=== PATIENT | male | born 1970 | race Caucasian/White ===

== ENCOUNTER 2020-02-18 08:06 | Outpatient (CLI) | payer OTHER, SELFPAY ==
--- NOTE | ~2020-02-18 | XR_ITS ---
XR chest 2V 02/18/2020 08:31 Indication: Left upper lobe cancer, cough and shortness of breath Procedure: 2 view chest Comparison: 07/06/2017 Findings: There is lucency overlying the aortic knob which may relate to underlying emphysema or post surgical change. There is blunting left lateral costophrenic recess. There is left basilar atelectasi s/scarring. The lungs are hyperinflated which is consistent with, but not diagnostic of chronic obstr uctive pulmonary disease. There is right upper lobe scarring. Impression: 1: Lucency overlying the aortic knob which may relate to emphysema or postsurgical change. Pneumomedi astinum is less favored. 2: Blunting left lateral costophrenic recess which may relate to pleural thickening or small effusion . Reviewed, dictated and finalized at location A. Impression: 1: Lucency overlying the aortic knob which may relate to emphysema or postsurgi faye change. Pneumomediastinum is less favored. 2: Blunting left lateral costophrenic recess which may relate to pleural thicke kendra or small effusion.
== END 2020-02-18 08:07 | disposition home or self-care (01) ==
PROVIDERS: PCP Family Medicine
DX: C34.12 Malignant neoplasm of upper lobe, left bronchus or lung (principal); R91.8 Other nonspecific abnormal finding of lung field
CPT/HCPCS: 71046

== ENCOUNTER 2020-03-01 08:46 | Outpatient (CLI) | payer OTHER, SELFPAY ==
--- NOTE | ~2020-03-01 | CT_ITS ---
EXAMINATION:CT chest w con DATE: 03/01/2020 09:23 INDICATION: Cancer of upper lobe of left lung. TECHNIQUE: Computed tomography (CT) of the chest was performed without intravenous contrast. Automate d exposure control and iterative reconstruction technique were employed. The dose-length product (DLP ) was 177.68 mGy-cm. COMPARISON: Chest CT 06/21/2017, 09/08/2015 FINDINGS: There are changes of left upper lobectomy. There is severe emphysema. There is an 8 mm nodu le in right upper lobe, stable from 09/08/2015, consistent with granulomatous disease. A calcified ri ght lung nodule is consistent with old granulomatous disease. No pleural effusion. The heart size is normal. There are coronary artery calcifications. No pericardial effusion. There is a 14 x 11 mm node in the aorticopulmonary window. There is a 12 mm cyst in the liver. There is mild thoracic spondylos is. IMPRESSION: 1. Mildly enlarged mediastinal lymph node, new from 06/21/2017, which is indeterminate for metastatic disease. Reviewed, dictated and finalized at location A. IMPRESSION: 1. Mildly enlarged mediastinal lymph node, new from 06/21/2017, which is indeter minate for metastatic disease.
[2020-03-01 11:09] LABS: Estimated Glomerular Filt Rate > 60
== END 2020-03-01 08:47 | disposition home or self-care (01) ==
PROVIDERS: PCP Family Medicine; Visit Provider Family Medicine
DX: C34.12 Malignant neoplasm of upper lobe, left bronchus or lung (principal); R59.0 Localized enlarged lymph nodes
CPT/HCPCS: 36415; 71260; Q9967

== ENCOUNTER 2020-03-26 12:20 | Outpatient (CLI) | payer OTHER, SELFPAY ==
--- NOTE | 2020-03-31 20:42 | P.PCNPFT_ITS ---
PFT Interpretation PFT Interpretation: DOS: 03/26/2020 REQUESTING: Dr. Jan Mccallum REASON FOR TESTING: enlarged lymph node PULMONARY FUNCTION TESTS Results are reproducible and reliable. Patient's medications include ProAir, Spiriva, and Symbicort. Spirometry: FEV1 70%, mildly decreased. FVC 96% normal. FEV 1% 53% signif icantly reduced consistent with airflow obstruction. FEF 25-75% is 29%. No significant change after bronchodilator. Lung volumes: TLC 110% normal. RV 123% mildly elevated consistent with air tra pping. Airway resistance increased 219%. Diffusion: DLCO 74%, mildly decreased. Flow volume loop: Scooping of the expiratory limb. IMPRESSION: Mild obstructive ventilatory defect which is severe in the small airways without response to bronchodilator, mild air trapping, mild diffusion impairment. Lack of response to bronchodilators should not preclude use if clinically indicated. This pattern is consistent with COPD. Carmina Thomas MD
== END 2020-03-26 12:21 | disposition home or self-care (01) ==
PROVIDERS: PCP Family Medicine; Visit Provider Family Medicine
DX: R59.9 Enlarged lymph nodes, unspecified (principal); R94.2 Abnormal results of pulmonary function studies
CPT/HCPCS: 94060; 94726; 94729

== ENCOUNTER 2020-05-28 12:40 | Outpatient (CLI) | payer OTHER, SELFPAY ==
--- NOTE | ~2020-05-28 | CT_ITS ---
EXAMINATION: CT abdomen w con DATE: 05/28/2020 13:09 INDICATION: Enlarged chest lymph node (14 x 11 mm aortopulmonary window lymph node) TECHNIQUE: Computed tomography (CT) of the abdomen was performed with 100 cc Omnipaque 350 intravenou s contrast. Automated exposure control and iterative reconstruction technique were employed. Exam dos e: 132.30 mGy-cm total exam DLP. COMPARISON: 07/20/[address] scan FINDINGS: Emphysematous is changes are evident in the lower lung zones. There is discoid atelectasis or scarring at both lung bases. Heart size is within normal limits. No pericardial or pleural effusio n. 11 mm left hepatic cyst. The liver is otherwise unremarkable. Approximate 4.5 mm stone in the dependent aspect of the gallbladder. No gallbladder wall thickening o r pericholecystic fluid or inflammation. No bile duct or pancreatic duct dilatation. No pancreatic ma ss lesion or calcification. Normal splenic size. Normal morphology of the adrenal glands. There are several cysts measuring up to 1.4 cm maximal dimension. No urinary tract calculus or hydron ephrosis. There is extensive calcification of the abdominal aorta but no aneurysm. There are prominent bilatera l renal artery calcifications as well as common iliac artery calcifications. No intraperitoneal or retroperitoneal mass lesion or adenopathy or ascites is detected. No suspicious osteolytic or osteoblastic lesions are noted. IMPRESSION: Emphysema 4.5 mm gallstone 11 mm hepatic cyst Left renal cysts Reviewed, dictated and finalized at Location A. Reviewed, dictated and finalized at location A.
[2020-05-28 13:04] LABS: Estimated Glomerular Filt Rate > 60
== END 2020-05-28 12:41 | disposition home or self-care (01) ==
PROVIDERS: PCP Family Medicine; Visit Provider Family Medicine
DX: R59.0 Localized enlarged lymph nodes (principal); J43.9 Emphysema, unspecified; K80.20 Calculus of gallbladder without cholecystitis without obstruction; K76.89 Other specified diseases of liver; N28.1 Cyst of kidney, acquired
CPT/HCPCS: 74160; Q9967

== ENCOUNTER 2021-03-03 09:08 | Outpatient (CLI) | payer OTHER, SELFPAY ==
[2021-03-07 14:52] LABS: Testosterone Total 611 ng/dL (250-1100)
== END 2021-03-03 09:09 | disposition home or self-care (01) ==
PROVIDERS: PCP Family Medicine; Visit Provider Nurse Practitioner
DX: N52.9 Male erectile dysfunction, unspecified (principal)
CPT/HCPCS: 36415; 84402; 84403

== ENCOUNTER 2021-03-17 09:39 | Outpatient (CLI) | payer OTHER, SELFPAY ==
--- NOTE | 2021-03-17 | EST_ITS ---
Patient Info Name: Douglas Momin Age: 50 years : 1970 Gender: Male Ht: 71 in Wt: 145 lbs BSA: 1.81 m2 HR: 84 bpm BP: 122 / 73 mmHg Heart Rhythm: Sinus Rhythm Exam Date: 03/17/2021 10:51 AM Exam Location: [facility] Stress Patient Status: Outpatient Admit Date: 03/17/2021 Staff Ordering Physician: Josh, Leslee Rodriguez NP Attending Provider: JoshLeslee NP Exercise Technologist: Allie Bryant CT Exercise Physician: Mak Wilson MD Exam Type: CA stress test treadmill Study Info An exercise stress test was performed. Summary 1. Normal sinus rhythm - normal ECG. 2. No abnormal ST/T wave changes with exercise. 3. Frequent PVCs. 4. Electrocardiographically negative stress test at 85% age predicted maximum heart rate. 5. Chest pain described by the patient during treadmill exercise but again no ischemic ECG changes. Protocol: [facility] Stress ECG Details Stage: REST Duration (min): 0 min : 53 sec Speed (mph): 0.0 Grade (%): 0 HR (bpm): 82 SBP (mmHg): 122 DBP (mmHg): 73 METS: --- Stage: REST Duration (min): 8 min : 20 sec Speed (mph): 0.0 Grade (%): 0 HR (bpm): 89 SBP (mmHg): 122 DBP (mmHg): 73 METS: --- Stage: STAGE 1 Duration (min): 1 min : 0 sec Speed (mph): 1.7 Grade (%): 10 HR (bpm): 110 SBP (mmHg): 122 DBP (mmHg): 73 METS: --- Stage: STAGE 1 Duration (min): 2 min : 0 sec Speed (mph): 1.7 Grade (%): 10 HR (bpm): 126 SBP (mmHg): 122 DBP (mmHg): 73 METS: --- Stage: STAGE 1 Duration (min): 3 min : 0 sec Speed (mph): 1.7 Grade (%): 10 HR (bpm): 122 SBP (mmHg): 205 DBP (mmHg): 93 METS: --- Stage: STAGE 2 Duration (min): 1 min : 0 sec Speed (mph): 2.5 Grade (%): 12 HR (bpm): 124 SBP (mmHg): 205 DBP (mmHg): 93 METS: --- Stage: STAGE 2 Duration (min): 2 min : 0 sec Speed (mph): 2.5 Grade (%): 12 HR (bpm): 138 SBP (mmHg): 213 DBP (mmHg): 91 METS: --- Stage: STAGE 2 Duration (min): 2 min : 59 sec Speed (mph): 3.4 Grade (%): 14 HR (bpm): 145 SBP (mmHg): 213 DBP (mmHg): 91 METS: --- Stage: RECOVERY Duration (min): 1 min : 0 sec Speed (mph): 0.0 Grade (%): 0 HR (bpm): 134 SBP (mmHg): 203 DBP (mmHg): 87 METS: --- Stage: RECOVERY Duration (min): 2 min : 0 sec Speed (mph): 0.0 Grade (%): 0 HR (bpm): 121 SBP (mmHg): 203 DBP (mmHg): 87 METS: --- Stage: RECOVERY Duration (min): 3 min : 0 sec Speed (mph): 0.0 Grade (%): 0 HR (bpm): 111 SBP (mmHg): 187 DBP (mmHg): 90 METS: --- Stage: RECOVERY Duration (min): 3 min : 29 sec Speed (mph): 0.0 Grade (%): 0 HR (bpm): 106 SBP (mmHg): 187 DBP (mmHg): 90 METS: --- Rest HR: 89 bpm Peak HR: 149 bpm Rest Sys BP: 122 mmHg Peak Sys BP: 213 mmHg Max Pr
== END 2021-03-17 09:40 | disposition home or self-care (01) ==
PROVIDERS: PCP Family Medicine; Visit Provider Nurse Practitioner
DX: R07.9 Chest pain, unspecified (principal)
CPT/HCPCS: 93017

== ENCOUNTER → 2021-05-15 01:10 | Outpatient (CLI) | payer OTHER, SELFPAY ==
[2021-05-15 22:45] LABS: SARS-CoV-2 RNA PCR Negative
== END ==
PROVIDERS: PCP Family Medicine; Visit Provider Family Medicine
DX: R73.9 Hyperglycemia, unspecified (principal); Z20.822 Contact with and (suspected) exposure to COVID-19
CPT/HCPCS: C9803; U0003; U0005

== ENCOUNTER 2021-05-17 09:21 | Outpatient (CLI) | payer OTHER, SELFPAY ==
--- NOTE | 2021-05-17 10:12 | ECHO_ITS ---
Patient Info Name: Douglas Momin Age: 50 years : 1970 Gender: Male Ht: 71 in Wt: 145 lbs BSA: 1.81 m2 HR: 78 bpm BP: 122 / 82 mmHg Technical Quality: Good Exam Date: 05/17/2021 10:23 AM Exam Location: [facility] Patient Status: Outpatient Admit Date: 05/17/2021 Staff Ordering Physician: Butch Gore DO Stock Drier Tender: Bev Pollack RDCS Attending Provider: Butch Gore DO Referring Physician: Bao CALDERON; Exam Type: CA echo dop color flow w con Study Info Indications - dyspnea R07.9 - Chest pain, unspecified R06.00 - Dyspnea, unspecified Complete two-dimensional, color flow and Doppler transthoracic echocardiogram is performed. Summary 1. Complete two-dimensional, color flow and Doppler transthoracic echocardiogram is performed. 2. Left ventricular chamber dimension is normal. 3. Left ventricular systolic function is normal, estimated at 60-65%. 4. The left ventricular diastolic function is grade I diastolic dysfunction. 5. E/e' 5 is not elevated. 6. Global longitudinal strain is normal at -17.5%. 7. There is trace tricuspid valve regurgitation. 8. No pulmonary hypertension, estimated pulmonary arterial systolic pressure is 35 mmHg. 9. There is trace pulmonic regurgitation. Left Ventricle E/e' 5 is not elevated. Global longitudinal strain is normal at -17.5%. Left ventricular chamber dimension is normal. Left ventricular systolic function is normal, estimated at 60-65%. The left ventricular diastolic function is grade I diastolic dysfunction. Right Ventricle Right ventricular chamber dimension is normal. Right ventricular systolic function is normal. Left Atria Left atrial chamber dimension is normal. Right Atria Right atrial chamber dimension is normal. Aortic Valve The aortic valve is trileaflet. There is no aortic valve stenosis. There is no aortic valve regurgitation. Pulmonic Valve There is trace pulmonic regurgitation. Mitral Valve There is no mitral valve stenosis. There is no mitral valve regurgitation. Tricuspid Valve There is trace tricuspid valve regurgitation. No pulmonary hypertension, estimated pulmonary arterial systolic pressure is 35 mmHg. Pericardium/Pleural There is no pericardial effusion. Inferior Vena Cava Normal inferior vena cava with >50% collapse upon inspiration consistent with normal right atrial pressure, 5 mmHg. Aorta The aortic root size at the sinus of Valsalva is normal. Left Ventricular Outflow Tract Name Value Normal LVOT 2D LVOT Diameter 2.08 cm LVOT Doppler LVOT Peak Gradient 5 mmHg LVOT Mean Gradient 2 mmHg LVOT VTI 20.02 cm LVOT VTI/AV VTI Ratio 0.82 LVOT Stroke Volume 68.01 ml LVOT CO 15.05 l/min LVOT CI 8.33 L/min/m2 Pulmonic Valve Name Value Normal
== END 2021-05-17 09:22 | disposition home or self-care (01) ==
PROVIDERS: PCP Family Medicine; Visit Provider Internal Medicine Cardiovascular Disease
DX: R06.00 Dyspnea, unspecified (principal)
CPT/HCPCS: C8929

== ENCOUNTER 2021-05-26 06:40 | Outpatient (CLI) | payer OTHER, SELFPAY ==
[2021-05-26 08:28] LABS: Alanine Aminotransferase 16 U/L (4-50); Albumin Level 4.7 g/dL (3.5-5.1); Alkaline Phosphatase 85 U/L (38-126); Anion Gap 7 mmol/L (8-16); Aspartate Amino Transferase 26 U/L (17-59); Bilirubin,Total 0.4 mg/dL (0.2-1.3); Blood Urea Nitrogen 11 mg/dL (9-20); Calcium 9.6 mg/dL (8.4-10.2); Carbon Dioxide 27 mmol/L (22-30); Chloride 102 mmol/L (98-107); Cholesterol 163 mg/dL (0-200); Estimated Glomerular Filt Rate > 60; Glucose 105 mg/dL (65-110); HDL Direct 47 mg/dL; Potassium 3.9 mmol/L (3.4-5.0); Sodium 136 mmol/L (137-145); Triglycerides 124 mg/dL (<150)
[2021-05-26 08:40] LABS: LDL Cholesterol Direct 76 mg/dL
== END 2021-05-26 06:41 | disposition home or self-care (01) ==
LOC: ANHLAB 06:42
PROVIDERS: PCP Family Medicine; Visit Provider Internal Medicine Cardiovascular Disease
DX: E78.5 Hyperlipidemia, unspecified (principal)
CPT/HCPCS: 36415; 80053; 80061

== ENCOUNTER 2021-07-21 14:01 | Outpatient (CLI) | payer OTHER, SELFPAY ==
--- NOTE | ~2021-07-21 | CT_ITS ---
EXAMINATION: CT diagnostic chest w con DATE: 07/21/2021 14:33 INDICATION: Bleeding from sternotomy, recent surgery, chest pain, shortness of breath TECHNIQUE: Transaxial computed tomographic images of the chest were obtained after the administration of 75 cc of Omnipaque 350 intravenous contrast. The dose-length product (DLP) was 174.79 mGy-cm. Ite rative reconstruction was used. COMPARISON: 03/01/2020 FINDINGS: There is severe emphysema. Changes of left upper lobectomy are again noted. A stable 8 mm n odule is present in the right upper lobe. There is no pleural effusion or pneumothorax. There is mild atelectasis of the lower lobes, right greater than left. No pleural effusion or pneumothorax is iden tified. There are changes of interval cardiac surgery. There is a 6.2 x 2.8 x 4.7 cm hyperattenuating fluid collection in the anterior mediastinum. There are also foci of gas in the anterior mediastinum and left anterior chest wall. No definite active contrast extravasation is identified. Streak artifa ct is seen anterior to the aortic arch. Cardiomegaly is noted. No pathologically enlarged thoracic ly mph nodes are identified. IMPRESSION: 1. Hematoma containing gas of the upper mediastinum, likely related to recent surgery. Although no ac tive contrast extravasation is identified, slow leak is not excluded. Given the amount of persistent gas, risk of developing abscess should be considered. Surgical consultation is recommended. 2. Severe emphysema. Reviewed, dictated and finalized at location B. IMPRESSION: 1. Hematoma containing gas of the upper mediastinum, likely related to recent s urgery. Although no active contrast extravasation is identified, slow leak is n ot excluded. Given the amount of persistent gas, risk of developing abscess enrique uld be considered. Surgical consultation is recommended. 2. Severe emphysema.
[2021-07-21 14:26] LABS: Estimated Glomerular Filt Rate > 60
== END 2021-07-21 14:02 | disposition home or self-care (01) ==
PROVIDERS: PCP Family Medicine
DX: T14.8XXA Other injury of unspecified body region, initial encounter (principal); J43.9 Emphysema, unspecified
CPT/HCPCS: 71260; Q9967

== ENCOUNTER 2021-08-10 09:03 | Outpatient (CLI) | payer OTHER, SELFPAY ==
[2021-08-10 09:31] LABS: Basophils Absolute Auto 0.1 K/mm3 (0.0-0.1); Basophils Percent Auto 0.8 % (0.2-1.2); Eosinophils Absolute Auto 0.4 K/mm3 (0-0.3); Eosinophils Percent Auto 4.1 % (0-4.4); Hematocrit 37.3 % (42.0-52.0); Hemoglobin 13.2 g/dL (14.0-18.0); Immature Granulocyte Absolute 0.03 K/mm3 (0.00-0.031); Immature Granulocyte Percent A 0.3 % (0-0.5); Lymphocytes Absolute Auto 2.41 K/mm3 (0.9-3.2); Lymphocytes Percent Auto 22.7 % (18.3-44.2); Mean Corpuscular HGB Conc 35.4 g/dl (32-36); Mean Corpuscular Hemoglobin 32.4 pg (26-34); Mean Corpuscular Volume 91.6 fl (80-100); Mean Platelet Volume 8.9 fl (7.4-10.4); Monocytes Absolute Auto 0.7 K/mm3 (0.1-0.6); Monocytes Percent Auto 6.6 % (2.6-8.5); Neutrophils Percent Auto 65.5 % (45.5-73.1); Platelet Count Result 269 k/mm3 (150-375); Red Blood Count 4.07 M/mm3 (4.6-6.20); Red Cell Distribution Width 13.2 % (11.5-14.5); White Blood Count 10.6 K/mm3 (4.5-10.0)
[2021-08-10 11:39] LABS: Alanine Aminotransferase 17 U/L (4-50); Albumin Level 4.7 g/dL (3.5-5.1); Alkaline Phosphatase 71 U/L (38-126); Anion Gap 8 mmol/L (8-16); Aspartate Amino Transferase 24 U/L (17-59); Bilirubin,Total 0.4 mg/dL (0.2-1.3); Blood Urea Nitrogen 13 mg/dL (9-20); Calcium 9.7 mg/dL (8.4-10.2); Carbon Dioxide 27 mmol/L (22-30); Chloride 98 mmol/L (98-107); Cholesterol 171 mg/dL (0-200); Estimated Glomerular Filt Rate > 60; Glucose 98 mg/dL (65-110); HDL Direct 49 mg/dL; Potassium 4.2 mmol/L (3.4-5.0); Sodium 133 mmol/L (137-145); Triglycerides 136 mg/dL (<150)
[2021-08-10 11:49] LABS: LDL Cholesterol Direct 84 mg/dL
[2021-08-10 12:08] LABS: Free T4 Free Thyroxine 1.08 ng/mL (0.78-2.19); Vitamin D 25 Hydroxy 50.6 ng/mL
[2021-08-10 12:10] LABS: Thyroid Stimulating Hormone 0.922 uIU/mL (0.465-4.680); Total Triiodothyronine (T3) 1.55 NG/ML (0.97-1.69)
== END 2021-08-10 09:04 | disposition home or self-care (01) ==
LOC: ANHLAB 09:06
PROVIDERS: PCP Family Medicine; Visit Provider Family Medicine
DX: Z13.1 Encounter for screening for diabetes mellitus (principal); Z13.0 Encounter for screening for diseases of the blood and blood-forming organs and certain disorders involving the immune mechanism; Z13.6 Encounter for screening for cardiovascular disorders; Z13.220 Encounter for screening for lipoid disorders; Z13.29 Encounter for screening for other suspected endocrine disorder; R80.9 Proteinuria, unspecified; Z00.00 Encounter for general adult medical examination without abnormal findings; I10 Essential (primary) hypertension
CPT/HCPCS: 36415; 80053; 80061; 82306; 84439; 84443; 84480; 85025

== ENCOUNTER 2022-12-27 08:52 | Outpatient (CLI) | payer OTHER, SELFPAY ==
[2022-12-27 09:29] LABS: Basophils Percent Auto 0.2 % (0.2-1.2); Eosinophils Absolute Auto 0.1 K/mm3 (0-0.3); Eosinophils Percent Auto 0.3 % (0-4.4); Hematocrit 43.1 % (42.0-52.0); Hemoglobin 15.3 g/dL (14.0-18.0); Immature Granulocyte Absolute 0.11 K/mm3 (0.00-0.031); Immature Granulocyte Percent A 0.6 % (0-0.5); Lymphocytes Absolute Auto 3.11 K/mm3 (0.9-3.2); Lymphocytes Percent Auto 15.7 % (18.3-44.2); Mean Corpuscular HGB Conc 35.5 g/dl (32-36); Mean Corpuscular Hemoglobin 32.9 pg (26-34); Mean Corpuscular Volume 92.7 fl (80-100); Mean Platelet Volume 9.4 fl (7.4-10.4); Monocytes Absolute Auto 1.1 K/mm3 (0.1-0.6); Monocytes Percent Auto 5.4 % (2.6-8.5); Neutrophils Absolute Auto 15.4 K/mm3 (1.3-6.7); Neutrophils Percent Auto 77.8 % (45.5-73.1); Platelet Count Result 220 k/mm3 (150-375); Red Blood Count 4.65 M/mm3 (4.6-6.20); Red Cell Distribution Width 13.5 % (11.5-14.5); White Blood Count 19.8 K/mm3 (4.5-10.0)
[2022-12-27 09:41] LABS: Alanine Aminotransferase 16 U/L (6-50); Albumin Level 4.6 g/dL (3.5-5.1); Alkaline Phosphatase 77 U/L (38-126); Anion Gap 6 mmol/L (8-16); Aspartate Amino Transferase 22 U/L (17-59); Bilirubin,Total 0.4 mg/dL (0.2-1.3); Blood Urea Nitrogen 14 mg/dL (9-20); Calcium 9.1 mg/dL (8.4-10.2); Carbon Dioxide 25 mmol/L (22-30); Chloride 102 mmol/L (98-107); Cholesterol 162 mg/dL (0-200); Estimated Glomerular Filt Rate > 60; Glucose 92 mg/dL (65-110); HDL Direct 43 mg/dL; Potassium 3.7 mmol/L (3.4-5.0); Sodium 133 mmol/L (137-145); Triglycerides 124 mg/dL (<150)
[2022-12-27 09:52] LABS: LDL Cholesterol Direct 94 mg/dL
[2022-12-27 10:12] LABS: Prostate Specific Antigen 0.2 ng/mL (< OR = 4.0); Thyroid Stimulating Hormone 0.137 uIU/mL (0.465-4.680); Total Triiodothyronine (T3) 1.08 NG/ML (0.97-1.69)
[2022-12-27 10:15] LABS: Creatinine Urine 134.4 mg/dL
[2022-12-27 10:20] LABS: MALB Creatinine Ratio 19.1 mg/g (0-30); Microalbumin Urine Random 25.7 mg/L (0-16.7)
[2022-12-27 10:49] LABS: Free T4 Free Thyroxine 1.35 ng/mL (0.78-2.19); Vitamin D 25 Hydroxy 58.8 ng/mL
== END 2022-12-27 08:53 | disposition home or self-care (01) ==
PROVIDERS: Nurse Practitioner Adult Health; PCP Family Medicine; Visit Provider Family Medicine
DX: I10 Essential (primary) hypertension (principal); E78.5 Hyperlipidemia, unspecified; J44.9 Chronic obstructive pulmonary disease, unspecified; C34.90 Malignant neoplasm of unspecified part of unspecified bronchus or lung; R53.1 Weakness; R53.83 Other fatigue; Z12.5 Encounter for screening for malignant neoplasm of prostate
CPT/HCPCS: 36415; 80053; 80061; 82043; 82306; 84153; 84439; 84443; 84480; 85025; G0103

== ENCOUNTER 2023-01-30 09:45 | Outpatient (CLI) | payer OTHER, SELFPAY ==
--- NOTE | 2023-01-30 13:24 | WPDPFTINT ---
PFT Procedure Performed PFT Procedure Performed Spirometry w/o Bronchodil PFT Interpretation Spirometry showed diminished expiratory flow rates and a diminished FEV1/FVC ratio of 48%, consistent with obstructive airway disease. No post bronchodilator study carried out. The flow-volume loop is consistent with obstructive airway disease. In comparison to previous study in March of 2020, the pre-bronchodilator FEV1 and FVC are each lower by approximately 0.3 L. Impression: Moderate obstructive airway disease.
== END 2023-01-30 09:46 | disposition home or self-care (01) ==
LOC: ANHPFT 09:46
PROVIDERS: PCP Family Medicine; Visit Provider Family Medicine
DX: R06.00 Dyspnea, unspecified (principal); J44.9 Chronic obstructive pulmonary disease, unspecified
CPT/HCPCS: 94375

== ENCOUNTER 2023-11-09 10:08 | Outpatient (CLI) | payer MEDICARE, SELFPAY ==
[2023-11-09 11:04] LABS: Basophils Absolute Auto 0.1 K/mm3 (0.0-0.1); Eosinophils Absolute Auto 0.2 K/mm3 (0-0.3); Eosinophils Percent Auto 2.1 % (0-4.4); Hemoglobin 15.5 g/dL (14.0-18.0); Immature Granulocyte Absolute 0.03 K/mm3 (0.00-0.031); Immature Granulocyte Percent A 0.4 % (0-0.5); Lymphocytes Absolute Auto 2.72 K/mm3 (0.9-3.2); Lymphocytes Percent Auto 33.3 % (18.3-44.2); Mean Corpuscular HGB Conc 33.7 g/dl (32-36); Mean Corpuscular Hemoglobin 31.6 pg (26-34); Mean Corpuscular Volume 93.9 fl (80-100); Mean Platelet Volume 9.6 fl (7.4-10.4); Monocytes Absolute Auto 0.5 K/mm3 (0.1-0.6); Monocytes Percent Auto 6.4 % (2.6-8.5); Neutrophils Absolute Auto 4.7 K/mm3 (1.3-6.7); Neutrophils Percent Auto 56.8 % (45.5-73.1); Platelet Count Result 244 k/mm3 (150-375); Red Cell Distribution Width 13.2 % (11.5-14.5); White Blood Count 8.2 K/mm3 (4.5-10.0)
[2023-11-09 11:08] LABS: Alanine Aminotransferase 15 U/L (6-50); Albumin Level 4.7 g/dL (3.5-5.1); Alkaline Phosphatase 79 U/L (38-126); Anion Gap 8 mmol/L (8-16); Aspartate Amino Transferase 26 U/L (17-59); Bilirubin,Total 0.4 mg/dL (0.2-1.3); Blood Urea Nitrogen 15 mg/dL (9-20); Calcium 9.2 mg/dL (8.4-10.2); Carbon Dioxide 24 mmol/L (22-30); Chloride 105 mmol/L (98-107); Cholesterol 179 mg/dL (0-200); Estimated Glomerular Filt Rate > 60; Glucose 99 mg/dL (65-110); HDL Direct 52 mg/dL; Potassium 4.3 mmol/L (3.4-5.0); Sodium 137 mmol/L (137-145); Triglycerides 61 mg/dL (<150)
[2023-11-09 11:18] LABS: LDL Cholesterol Direct 105 mg/dL
[2023-11-09 11:24] LABS: Free T4 Free Thyroxine 1.19 ng/mL (0.78-2.19); Vitamin D 25 Hydroxy 44.8 ng/mL
[2023-11-09 11:38] LABS: Prostate Specific Antigen 0.3 ng/mL (< OR = 4.0); Total Triiodothyronine (T3) 1.21 NG/ML (0.97-1.69)
[2023-11-09 11:39] LABS: MALB Creatinine Ratio 13.1 mg/g (0-30)
== END 2023-11-09 10:09 | disposition home or self-care (01) ==
LOC: ANHLAB 10:14
PROVIDERS: PCP Family Medicine; Visit Provider Family Medicine
DX: J44.9 Chronic obstructive pulmonary disease, unspecified (principal); I10 Essential (primary) hypertension; M62.81 Muscle weakness (generalized); E55.9 Vitamin D deficiency, unspecified; E03.9 Hypothyroidism, unspecified; E78.5 Hyperlipidemia, unspecified; D64.9 Anemia, unspecified; Z12.5 Encounter for screening for malignant neoplasm of prostate
CPT/HCPCS: 36415; 80053; 80061; 82043; 82306; 84153; 84439; 84443; 84480; 85025; G0103

== ENCOUNTER 2025-03-28 10:11 | Outpatient (CLI) | payer MEDICARE, MEDICAID, SELFPAY ==
--- OUTSIDE RECORDS SUMMARY | 2025-03-28 10:17 | XMS_ITS | Continuity of Care Document ---
Author Organization [facility] Address [address] [place] [address] [address] [place] [address] Phone Care Team Providers Care Connection Worker Name Role Phone Jorgito Vargas Unavailable Unavailable Advance Directives Directive Yes / No Effective Date File Name No Information Encounters Encounter Description Practice Location Reason(s) For Visit Diagnoses Date Provider Providers Copied on Encounter [facility], [id number] [place] [address] [address], [place], [place], [id number], [place] tel:[phone] [facility] [place] No Information [phone] [facility] [place] , [address], [place], [address], [place]. tel:[phone] Family History Family Member Type Diagnosis Age At Onset No Information Payers Payer name Insurance type Covered constitution party ID Authoriza tion(s) [employer] [id number] Social History Type Description Quantity Date Captured Comments Sex Male Smoking Status No Information Chief Complaint And Reason For Visit No Information Reason For Referral Reason For Referral No Information History Of Present Illness Encounter Date Complaint History Of Prese nt Illness No Information Functional Status Date Functional Assessmen t No Information Instructions Date Instruction Additional Infor mation No Information Assessments Type Assessment Date No Information Patient Care Teams Name Effective Dates (start - stop) Status Members No Information
--- OUTSIDE RECORDS SUMMARY | 2025-03-28 10:17 | XMS_ITS | Clinical Summary ---
Author Organization [facility] Address [facility] [place] [address] Care Team Providers Care Owner Operator Name Role Phone Jan Mccallum MD Primary Care Provider [phone] Shola Cordero MD Unavailable [phone] Riley Shipley MD Unavailable [phone] Allergies No known active allergies Medications albuterol HFA (PROVENTIL HFA,VENTOLIN HFA,PROAIR HFA) 90 mcg/actuation inhalerIndications :Chronic Obstructive Pulmonary Disease Inhale 2 puffs as needed for wheezing Active atorvastatin (LIPITOR) 20 mg tabletIndications: arteriosclerotic vascular disease Take 1 tablet (20 mg total) by mouth nightly 0 Active lisinopril-hydroCH LOROthiazide (ZESTORETIC) 20-25 mg per tabletIndications: hypertension Take 1 tablet by mouth every morning 0 Active HYDROcodone-acetam inophen (NORCO) 5-325 mg per tabletIndications: Pain Take 1 tablet by mouth every 8 (eight) hours as needed for pain 1 Active ondansetron ODT (ZOFRAN-ODT) 4 mg disintegrating tablet 2 Active triamcinolone (KENALOG) 0.1 % cream Apply topically 2 (two) times a day 30 g 3 2 Active sildenafiL (VIAGRA) 100 mg tablet 1 tablet (100 mg total) as needed 2 Active ALPRAZolam (XANAX) 0.25 mg tablet Take 1 tablet (0.25 mg total) by mouth as needed for anxiety or sleep 3 Active Breztri Aerosphere 160-9-4.8 mcg/actuation HFA aerosol inhalerIndications :Bronchospasm Prevention with COPD Inhale 2 Doses 2 (two) times a day 3 Active miscellaneous medical supply misc 2 L nightly Oxygen 2 L at night Active montelukast (SINGULAIR) 10 mg tablet 3 Active aspirin 81 mg enteric coated tablet Take 1 tablet (81 mg total) by mouth daily Active varenicline tartrate (CHANTIX) 1 mg tabletIndications: Smoking Cessation Take 1 tablet (1 mg total) by mouth 2 (two) times a day Take with full glass of water. 60 tablet 11 3 Active Active Problems Patient Care Coordination No te Formatting of this note migh t be different from the original. Mr. Douglas Zelaya is a 49-year-old with mediastinal lymphadenopathy. Patient has a history of stage IA lung adenocarcinoma and is status post left upper lobe lobectomy on August 14, 2017. On 03/01/2020 the patient underwent a chest CT which showed a 14 x 11 mm lymph node in the aortic or pulmonary window. Patient is scheduled for a chest CT prior to his appointment today. Patient presents today for further surgical evaluation. Problem Noted Date Diagnosed Date Chest wall pain 10/29/2024 Encounter for surgical after care following surgery on the circulatory system 06/27/2024 Pulmonary infiltrates 03/07/2024 Chronic middle ear effusion, bilateral 3 Mixed hearing loss, bilateral 12/23/2022 Iliac artery stenosis, left 12/07/2022 Assessment & Plan (03/30/2023 8:31 AM CDT): - OR 03/30 for L iliac artery stenting - bedrest post-procedure per surgeon instruction - Continue aspirin and statin - OOB POD #1, PT evaluation, likely home POD #1 - Pain control with POPM - Q4h NV monitoring Dehydration 08/30/2022 Right ear pain 06/28/2022 Dysphagia 06/28/2022 Elevated LFTs 06/15/2022 Drug-induced skin rash 01/25/2022 Elevated amylase 12/14/2021 Sensorineural hearing loss, asymmetrical 022 Drug induced constipation 09/15/2021 Chemotherapy-induced nausea 09/15/2021 Ringing in ears, bilateral 09/15/2021 Regional lymph node metastasis present Need for immunization against influenza 08/17/20 21 Acute post-operative pain 07/15/2021 Assessment & Plan (07/16/2021 9:17 AM CDT): - takes norco at home - adjust pain medications - refuses adjuncts Cont current plan Malignant neoplasm of upper lobe of left lung Cancer Staging:Pathologic stage from 08/14/2017:Stage IA1(pT1a, pN0, cM0) - Signed by Nusrat Gary MD PhD on 08/14/2021 Pathologic stage from 07/14/2021: pN2, cM0 - Signed by Nusrat Gary MD PhD on 08/17/2021 Overview (07/02/2021): Added automatically from request for surgery [id number] Assessment & Plan (03/30/2023 8:31 AM CDT): - Continue outpatient follow up with prior physician Assessment & Plan (07/16/2021 9:18 AM CDT): Median sternotomy with resection of anterior mediastinal mass - voiding - Pain control: sched Tylenol, PRN oxycodone, toradol x4 doses, breakthrough Dilaudid - DVT PPX - sternal precautions Finger pain, left 06/07/2019 Overview (06/07/2019): Added automatically from request for surgery [id number] Ulnar nerve laceration, left, initial encounter 10/26/2018 Overview (10/26/2018): Added automatically from request for surgery [id number] Immunizations Immunization Administration Dates Next Due Influenza, Quadrivalent, Eugenie l Culture-based MDCK, Preservative Free, Antibiotic Free, Intramuscular 08/17/2021 Surgical History Surgery Date Site/Laterality Comments TONSILLECTOMY ULNAR NERVE REPAIR 10/26/2018 Left 1. Repair of ulnar artery in the forearm 2. Repair of ulnar nerve in the forearm 3 cm proximal to the wrist crease 3. Repair of flexor digitorum superficialis tendon in the forearm 4. Repair of flexor carpi ulnaris tendon in the forearm 5. Repair of dorsal sensory branch of the ulnar nerve in the forearm 6. Guyon's canal release at the wrist 7. Irrigation & excisional debridement of nonviable skin RADICAL ORCHIECTOMY 05/17/2018 Right LUNG CANCER SURGERY 09/18/2016 - 09/17/2017 left upper lobectomy LUNG BIOPSY 09/18/2016 - 09/17/2017 COLONOSCOPY LOBECTOMY Left STERNOTOMY CARDIAC SURGERY Medical History Medical History Date Comments COPD (chronic obstructive pu lmonary disease) (HCC) Emphysema (subcutaneous) (mcmullen rgical) resulting from a procedure Cancer (HCC) LUNG CANCER PONV (postoperative nausea and vomiting) Does not feel IV medicines help Sleep apnea Motion sickness Dysphagia Hypertension Hyperlipidemia Arthritis Coronary artery disease Family History Medical History Relation Name Comments No Known Problems Father No Known Problems Mother Breast cancer Other Family history of malignant neoplasm of breast - Relation: Aunt (Added by TW Conv) Heart attack Sister Family history of myocardial infarction - (Added by TW Conv) Anesthesia problems Neg Hx Relation Name Status Comments Father Mother Other Sister Social History Tobacco Use Types Packs/Day Years Used Date Smoking Tobacco: Former E-cigarettes 1986 - 2020 Smokeless Tobacco: Never Tobacco Cessation:Counseling Given: Not Answered Comments:smoked 1ppd till 2016 Alcohol Use Standard Drinks/Week Comments Not Currently 0 (1 standard drink = 0.6 oz pur e alcohol) AUDIT-C Answer Date Recorded Q1: How often do you have a drink containing alcohol? Never 03/28/2024 Q2: How many drinks containi ng alcohol do you have on a typical day when you are drinking? Patient does not drink Q3: How often do you have si x or more drinks on one occasion? Never 03/28/2024 Personal Safety Answer Date Recorded Have you ever been in or are you currently in a harmful physical or emotional relationship or is someone making you feel afraid or unsafe? 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 Not on file Not on file Obstetrics History Last Filed Vital Signs Vital Sign Reading Time Taken Comments Blood Pressure 148/81 06/27/2024 10:32 AM CDT Pulse 83 10/29/2024 2:06 PM BROWNING PROCESSOR Temperature 36.9 C (98.5 F) 10/29/2024 2:06 PM BROWNING PROCESSOR Respiratory Rate 18 10/29/2024 2:06 PM BROWNING PROCESSOR Oxygen Saturation 95% 10/29/2024 2:06 PM BROWNING PROCESSOR Inhaled Oxygen Concentration - - Weight 61.1 kg (134 lb 12.8 oz) 10/29/2024 2:06 PM BROWNING PROCESSOR Height 176.8 cm (5' 9.61) 10/29/2024 2:06 PM CS T Body Mass Index 19.56 10/29/2024 2:06 PM BROWNING PROCESSOR Plan of Treatment Scheduled Procedures Name Priority Associated Diagnoses Date/Ti me ESOPHAGOGASTRODUODENOSCOPY Dysphagia, unspecified type Health Maintenance Due Date Last Done Comments Colon Cancer Screening-Colonoscopy 1970 Depression Screening 1970 Prostate Cancer Screening-PSA 1970 DTaP/Tdap/Td Vaccine (1 - Tdap) 1981 Hepatitis B Screening 1988 Regular Well Visit/Exam 18-64 1988 Pneumococcal vaccine <65 (1 of 2 - PCV) 1989 Zoster Vaccine (1 of 2) 1989 Covid-19 Vaccine (2 - Yamilet risk series) 04/15/2021 03/18/2021 Influenza Vaccine (Season Ended) 2025 08/17/20 21 Hepatitis C Screening Completed 07/14/2021 Medical Devices Implanted Type Area Senior Care Specialist Device Identifier Shelf Expiration Date Model / Serial / Lot Wl [employer] Bath Viabahn Od7 Mm Odsec11 Mm Id7 Fr L59 Mm L135 Cm Balloon Expandable Guidewire .035 In Stent Endoprosthesis [id number] - [id number] - [id number] Implanted:Qty: 1 on 03/30/2023 by Taye Zepeda MD at [facility] Endoprosthesis Right: Iliac [employer] [id number] 08/24/2025 [id number] / [id number] / Description:Iliac artery RIG HT [employer] Stent Endoprosthesis 39mm 9mm 13mm 8fr Bath Viabahn 135cm [id number] - [id number] - [id number] Implanted:Qty: 1 on 03/30/2023 by Taye Zepeda MD at [facility] Endoprosthesis Left: Iliac [employer] [id number] 04/13/2025 [id number] / [id number] / Description:Iliac artery LEF T W[employer] Stent Endoprosthesis Iliac Artery 5cm 9mm 8fr Heparin [id number] - [id number] - [id number] Implanted:Qty: 1 on 03/30/2023 by Taye Zepeda MD at [facility] Endoprosthesis Left: Iliac W[employer] [id number] 07/18/2025 [id number] / [id number] / Medtronic Inc Everflex 8mm 30mm 80cm Self Expand Delivery Catheter System - [id number] Implanted:Qty: 1 on 03/30/2023 by Taye Zepeda MD at [facility] Stent Right: Iliac Medtronic Inc [id number] 12/24/2024 [id number] 8-030-0 80 / / [id number] Description:Right iliac janae ry Saenz Vascular Device Clsr Perclose Prostyle Sut-Mediatd Closure-Repair Sys 57654-18 - [id number] Implanted:Qty: 1 on 03/30/2023 by Taye Zepeda MD at [facility] Vascular Closure Device Left: Groin Saenz Vascular [id number] 01/15/2025 28800-4 3 / / [id number] Description:Femoral artery [employer] Device Vascular Closure Femoral Artery Bioabsorbable Dual Method Vascade 6-7fr Collagen [id number] - [id number] Implanted:Qty: 1 on 03/30/2023 by Taye Zepeda MD at [facility] Vascular Closure Device Right: Groin [employer] Inc [id number] 01/05/2025 700-580 I-05U / / [id number] Description:Right femoral Procedures Procedure Name Priority Date/Time Associated Diagnosis Comments HEPATITIS C ANTIBODY Routine 07/14/2021 10:45 AM CDT from Last 3 Months or Most Recently Relevant to Health Maintenance Results * Hepatitis C antibody (07/14/2021 10:45 AM CDT) Hep C Ab Nonreactive Nonreactive [facility] Comment:Antibodies to HCV no t detected. Does NOT exclude the possibility of recent exposure to HCV. Blood 07/14/2021 10:4 5 AM CDT 07/14/2021 11:21 AM CDT us Notinfile Unknown LAB MICROBIOLOGY - GENERAL ORD ERABLES Edited Result - Final [facility] Department [place] [address] from Last 3 Months or Most Recently Relevant to Health Maintenance Insurance [facility] MEDICARE [facility] MEDICARE Advance Directives For more information, please contact: [phone] * Full Code (Latest Code Status on File) Date Activated Date Inactivated Comments 09/02/2022 8:49 AM 09/02/2022 2:31 PM * Full Code Date Activated Date Inactivated Comments 07/14/2021 4:18 PM 07/16/2021 9:53 PM Care Teams Owner Operator Relationship Specialty Start Date End Date Jan Mccallum MD PCP - General 07/26/17 Shola Cordero MD Referring Physician Thoracic Surgery 08/02/21 Riley Shipley MD [address] [facility], [address] [place] [address] Medical Oncologist/Psychologist Counseling Medical Oncology 08/02/21
--- OUTSIDE RECORDS SUMMARY | 2025-03-28 10:17 | XMS_ITS | Encounter Summary ---
Author Organization [facility] Address [address] [place] [address] Phone Care Team Providers Care Generation Technician Name Role Phone Jan Mccallum MD Primary Care Provider [phone] Shola Cordero MD Unavailable [phone] Riley Shipley MD Unavailable [phone] Encounter Details Date Type Department Care Team (Latest Contact Info) Description 08/07/2017 Orders Only [facility] CONVERSION Scanning, Provider Social History Tobacco Use Types Packs/Day Years Used Date Smoking Tobacco: Never Assessed Sex and Gender Information Value Date Recorded Sex Assigned at Not on file Legal Sex Male 12:57 PM SCRAP BALLER Gender Identity Not on file Sexual Orientation Not on file documented as of this encounter Plan of Treatment Scheduled Procedures Name Priority Associated Diagnoses Date/Ti me ESOPHAGOGASTRODUODENOSCOPY Dysphagia, unspecified type documented as of this encounter Procedures Procedure Name Priority Date/Time Associated Diagnosis Comments PULMONARY FUNCTION TEST (PFT) 08/07/2017 9:13 AM SCRAP BALLER documented in this encounter Results * PULMONARY FUNCTION TEST (PFT) (08/07/2017 9:13 AM SCRAP BALLER) Anatomical Region Laterality Modality PFT us Provider Scanning PFT ORDERABLES Final Result documented in this encounter Visit Diagnoses Not on filedocumented in this encounter Care Teams Generation Technician Relationship Specialty Start Date End Date Jan Mccallum MD PCP - General 07/26/17 Shola Cordero MD Referring Physician Thoracic Surgery 08/02/21 Riley Shipley MD [address] [facility], [address] [place] [address] Medical Oncologist/Disc Pad Grinder Medical Oncology 08/02/21 documented as of this encounter
--- OUTSIDE RECORDS SUMMARY | 2025-03-28 10:17 | XMS_ITS | Encounter Summary ---
Author Organization [facility] Address [address] [place] [address] Care Team Providers Care Tenoner Operator Name Role Phone Jan Mccallum MD Primary Care Provider Encounter Details Date Type Department Care Team (Late st Contact Info) Description 02/23/2019 Abstract [facility] CONVERSION [address] [place] [address] , Generic Conversion, Social History Tobacco Use Types Packs/Day Years Used Date Smoking Tobacco: Never Assessed Sex and Gender Information Value Date Recorded Sex Assigned at Not on file Legal Sex Male 5:43 PM SCHEDULE MAKER Gender Identity Not on file Sexual Orientation Not on file documented as of this encounter Plan of Treatment Not on file documented as of this encounter Visit Diagnoses Not on filedocumented in this encounter Care Teams Tenoner Operator Relationship Specialty Start Date End Date Jan Mccallum MD [address] [place] [address] PCP - General FAMILY PRACTICE 10/23/20 documented as of this encounter
--- OUTSIDE RECORDS SUMMARY | 2025-03-28 10:17 | XMS_ITS | Referral Summary ---
Author Organization [facility] Address [facility] [place] [address] Care Team Providers Care Biscuit Machine Operator Name Role Phone Jan Mccallum MD Primary Care Provider [phone] Shola Cordero MD Unavailable [phone] Riley Shipley MD Unavailable [phone] Allergies No known active allergies Medications albuterol [...] (07/02/2021): Added automatically from request for surgery [id number] Assessment & Plan (03/30/2023 8:31 AM CDT): - Continue outpatient follow up with prior physician Assessment & Plan (07/16/2021 9:18 AM CDT): Median sternotomy with resection of anterior mediastinal mass - voiding - Pain control: sched Tylenol, PRN oxycodone, toradol x4 doses, breakthrough Dilaudid - DVT PPX - sternal precautions Finger pain, left 06/07/2019 Overview (06/07/2019): Added automatically from request for surgery [id number] Ulnar nerve laceration, left, initial encounter 10/26/2018 Overview (10/26/2018): Added automatically from request for surgery [id number] Immunizations Immunization Administration Dates Next Due Influenza, Quadrivalent, Eugenie l Culture-based MDCK, Preservative Free, Antibiotic Free, Intramuscular 08/17/2021 Social History Tobacco Use Types Packs/Day Years [...] on file Legal Sex Male 12:57 PM MACHINE HOOP MAKER HELPER Gender Identity Not on file Sexual Orientation Not on file 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 Not on file Not on file Last Filed Vital Signs Vital Sign Reading Time Taken Comments Blood Pressure 148/81 06/27/2024 10:32 AM CDT Pulse 83 10/29/2024 2:06 PM MACHINE HOOP MAKER HELPER Temperature 36.9 C (98.5 F) 10/29/2024 2:06 PM MACHINE HOOP MAKER HELPER Respiratory Rate 18 10/29/2024 2:06 PM MACHINE HOOP MAKER HELPER Oxygen Saturation 95% 10/29/2024 2:06 PM MACHINE HOOP MAKER HELPER Inhaled Oxygen Concentration - - Weight 61.1 kg (134 lb 12.8 oz) 10/29/2024 2:06 PM MACHINE HOOP MAKER HELPER Height 176.8 cm (5' 9.61) 10/29/2024 2:06 PM CS T Body Mass Index 19.56 10/29/2024 2:06 PM MACHINE HOOP MAKER HELPER Plan of Treatment Scheduled Procedures Name Priority Associated Diagnoses Date/Ti me ESOPHAGOGASTRODUODENOSCOPY Dysphagia, unspecified type Medical Devices Implanted Type Area Welfare Investigator Device Identifier Shelf Expiration Date Model / Serial / Lot [employer] Pinon Viabahn Od7 Mm Odsec11 Mm Id7 Fr L59 Mm L135 Cm Balloon Expandable Guidewire .035 In Stent Endoprosthesis [id number] - [id number] - [id number] Implanted:Qty: 1 on 03/30/2023 by Taye Zepeda MD at [facility] Endoprosthesis Right: Iliac Wl [employer] [id number] 08/24/2025 [id number] 02A / [id number] / Description:Iliac artery RIG HT Wl [employer] Stent Endoprosthesis 39mm 9mm 13mm 8fr Pinon Viabahn 135cm [id number] - [id number] - [id number] Implanted:Qty: 1 on 03/30/2023 by Taye Zepeda MD at [facility] Endoprosthesis Left: Iliac Wl [employer] [id number] 04/13/2025 [id number] 02A / [id number] / Description:Iliac artery LEF T Wl [employer] Stent Endoprosthesis Iliac Artery 5cm 9mm 8fr Heparin [id number] - [id number] - [id number] Implanted:Qty: 1 on 03/30/2023 by Taye Zepeda MD at [facility] Endoprosthesis Left: Iliac Wl [employer] [id number] 07/18/2025 [id number] / [id number] / Medtronic Inc Everflex 8mm 30mm 80cm Self Expand Delivery Catheter System - [id number] Implanted:Qty: 1 on 03/30/2023 by Taye Zepeda MD at [facility] Stent Right: Iliac Medtronic Inc [id number] 12/24/2024 PRB35-0 8-030-0 80 / / [id number] Description:Right iliac janae ry Saenz Vascular Device Clsr Perclose Prostyle Sut-Mediatd Closure-Repair Sys 71709-30 - [id number] Implanted:Qty: 1 on 03/30/2023 by Taye Zepeda MD at [facility] Vascular Closure Device Left: Groin Saenz Vascular [id number] 01/15/2025 13178-0 3 / / [id number] Description:Femoral artery [employer] Device Vascular Closure Femoral Artery Bioabsorbable Dual Method Vascade 6-7fr Collagen [id number] - [id number] Implanted:Qty: 1 on 03/30/2023 by Tyae Zepeda MD at [facility] Vascular Closure Device Right: Groin [employer] [id number] 01/05/2025 700-580 I-05U / / [id number] Description:Right femoral Procedures Procedure Name Priority Date/Time Associated Diagnosis Comments HEPATITIS C ANTIBODY Routine 07/14/2021 10:45 AM CDT from Last 3 Months or Most Recently Relevant to Health Maintenance Results * Hepatitis C antibody (07/14/2021 10:45 AM CDT) Hep C Ab Nonreactive Nonreactive [facility] Comment:Antibodies to HCV no t detected. Does NOT exclude the possibility of recent exposure to HCV. Blood 07/14/2021 10:4 5 AM CDT 07/14/2021 11:21 AM CDT us Notinfile Unknown LAB MICROBIOLOGY - GENERAL ORD ERABLES Edited Result - Final [facility] Department [place] [address] from Last 3 Months or Most Recently Relevant to Health Maintenance Insurance [facility] MEDICARE [facility] Address: [address] [address] [place] [address] [facility] MEDIC[facility] Advance Directives For more information, please contact: [phone] * Full Code (Latest Code Status on File) Date Activated Date Inactivated Comments 09/02/2022 8:49 AM 09/02/2022 2:31 PM * Full Code Date Activated Date Inactivated Comments 07/14/2021 4:18 PM 07/16/2021 9:53 PM Care Teams Biscuit Machine Operator Relationship Specialty Start Date End Date Jan Mccallum MD PCP - General 07/26/17 Shola Cordero MD Referring Physician Thoracic Surgery 08/02/21 Riley Shipley MD [address] [facility], [address] [place] [address] Medical Oncologist/Sensitized Paper Tester Medical Oncology 08/02/21
--- OUTSIDE RECORDS SUMMARY | 2025-03-28 10:17 | XMS_ITS | Clinical Summary ---
Author Organization [facility] Address [facility] [place] [address] Care Team Providers Care Vending Enterprises Supervisor Name Role Phone Jan Mccallum MD Primary Care Provider [phone] Social History Tobacco Use Types Packs/Day Years Used Date Smoking Tobacco: Never Assessed Sex and Gender Information Value Date Recorded Sex Assigned at Not on file Legal Sex Male 5:43 PM LEADERSHIP DEVELOPMENT MANAGER Gender Identity Not on file Sexual Orientation Not on file Plan of Treatment Health Maintenance Due Date Last Done Comments Colorectal Cancer Screening Colonoscopy (10 Years) 1970 Annual Physical 1973 Hepatitis C 1988 DTaP, Tdap and Td Vaccines ( 1 - Tdap) 1989 Hepatitis B Vaccines (1 of 3 - 19+ 3-dose series) 1989 Pneumococcal Vaccine: 50+ Ye ars (1 of 1 - PCV) 2020 Zoster Vaccines (1 of 2) 2020 COVID-19 Vaccine (1 - 2023-2 5 season) 2024 Meningococcal B Vaccine Aged Out No l onger eligible based on patient's age to complete this topic Meningococcal Vaccine Aged Out No brandon bob eligible based on patient's age to complete this topic RSV Immunizations Under 20 Months Aged Out No longer eligible based on patient's age to complete this topic Insurance [employer] Care Teams Vending Enterprises Supervisor Relationship Specialty Start Date End Date Jan Mccallum MD [address] [place] [address] PCP - General FAMILY PRACTICE 10/23/20
--- OUTSIDE RECORDS SUMMARY | 2025-03-28 10:17 | XMS_ITS | Clinical Summary ---
Author Organization [facility] Address [address] [place] [address] Care Team Providers Care Custom Protection Officer Name Role Phone Noemi Foley Primary Care Provider Unavail able Source Comments [facility],non-owned Affiliates and Associated Physician Practices is amultiple site organization consisting of ambulatory clinics and hospital sitesin [place], [place], [place] and [place]. This disclosure is being madepursuant to the Care Everywhere program and may not contain all information available regarding this patient. Last updated 18.[facility] Allergies No known active allergies Medications * Be aware that medications may not be up to date on this document. Alwaysverify current medications with the patient. albuterol HFA (PROVENTIL;VENT MARIMAR;PROAIR) 108 (90 BASE) MCG/ACT inhaler Inhale 2 puffs by mouth every 6 hours as needed Active budesonide-form oterol (SYMBICORT) 160-4.5 MCG/ACT inhaler Inhale 2 puffs by mouth 2 times daily Active tiotropium (SPIRIVA) 18 MCG inhalation capsule Inhale 1 capsule by mouth once daily Active OXYGEN Use 2 L/min as directed At night Active HYDROcodone-yesy taminophen (NORCO) 5-325 MG tablet Take 1 tablet by mouth every 6 hours as needed for Pain 20 tablet 05/17/2018 Active Active Problems Problem Noted Date Diagnosed Date Lung cancer Lung cancer Resolved Problems Problem Noted Date Diagnosed Date Resolved Date Testicular mass 05/23/2018 Family History Medical History Relation Name Comments Hypertension Father Hypertension Mother Relation Name Status Comments Father Mother Social History Tobacco Use Types Packs/Day Years Used Date Smoking Tobacco: Every Day Cigarettes Smokeless Tobacco: Never Comments:Vapor Alcohol Use Standard Drinks/Week Comments No 0 (1 standard drink = 0.6 oz pur e alcohol) Sex and Gender Information Value Date Recorded Sex Assigned at Not on file Legal Sex Male 12:08 PM CDT Gender Identity Not on file Sexual Orientation Not on file Last Filed Vital Signs Vital Sign Reading Time Taken Comments Blood Pressure 143/84 05/23/2018 1:03 PM CDT Pulse 69 05/23/2018 1:03 PM CDT Temperature 36.9 C (98.5 F) 05/23/2018 1:03 PM CDT Respiratory Rate 18 05/17/2018 5:30 PM CDT Oxygen Saturation 93% 05/23/2018 1:03 PM CDT Inhaled Oxygen Concentration - - Weight 65.8 kg (145 lb) 05/23/2018 1:03 PM CDT Height 180.3 cm (5' 11) 05/23/2018 1:03 PM CDT Body Mass Index 20.22 05/23/2018 1:03 PM CDT Plan of Treatment Health Maintenance Due Date Last Done Comments COLOGUARD (AGES 45-75) - COL ON CA SCREENING 1970 COLON MONITORING 1970 COLONOSCOPY - COLON CA SCREENING 1970 CT COLONOGRAPHY - COLON CA SCREENING 1970 Colorectal Cancer Screening 1970 FIT - COLON CA SCREENING 1970 FLEX SIG - COLON CA SCREENING 1970 LIPID TESTING 1970 HIV SCREENING 1985 HEPATITIS C SCREENING 07/29/1988 DTAP/TDAP/TD VACCINES (1 - Tdap) 1989 HEPATITIS B VACCINE (1 of 3 - 19+ 3-dose series) 1989 PNEUMOCOCCAL VACCINE 50+ (1 of 1 - PCV) 2020 ZOSTER VACCINE (1 of 2) 2020 COVID-19 VACCINE (1 - 2023-2 5 season) 2024 DEPRESSION SCREENING 09/18/2024 INFLUENZA VACCINE (#1) 2025 HIB VACCINE Aged Out No longer eligi ble based on patient's age to complete this topic HPV VACCINE Aged Out No longer eligi ble based on patient's age to complete this topic MENINGOCOCCAL (Group B) VACC INE SHARED DECISION-MAKING Aged Out No longer eligibl e based on patient's age to complete this topic MENINGOCOCCAL GROUPS A/C/Y/W VACCINE Aged Out No longer eligible b ased on patient's age to complete this topic Insurance Advance Directives * Full Code (Latest Code Status on File) Date Activated Date Inactivated Comments 05/17/2018 12:21 PM 05/17/2018 8:24 PM Care Teams Custom Protection Officer Relationship Specialty Start Date End Date Noemi Foley Update Information PCP - General 05/20/18
--- OUTSIDE RECORDS SUMMARY | 2025-03-28 10:17 | XMS_ITS ---
Author Organization [facility] Address [address] [place] [address] Care Team Providers Care Aeronautical Test Engineer Name Role Phone Jan Mccallum MD Primary Care Provider [phone] Shola Cordero MD Unavailable [phone] Riley Shipley MD Unavailable [phone] Active Problems Patient Care Coordination No te Formatting of this note migh t be different from the original. Mr. Douglas Momin is a 49-year-old with mediastinal lymphadenopathy. Patient [...] infiltrates 03/07/2024 Chronic middle ear effusion, bilateral Mixed hearing loss, bilateral 12/23/2022 Iliac artery [...] (07/02/2021): Added automatically from request for surgery [id number] Assessment & Plan (03/30/2023 8:31 AM CDT): - Continue outpatient follow up with prior physician Assessment & Plan (07/16/2021 9:18 AM CDT): Median sternotomy with resection of anterior mediastinal mass - voiding - Pain control: sched Tylenol, PRN oxycodone, toradol x4 doses, breakthrough Dilaudid - DVT PPX - sternal precautions Finger pain, left 06/07/2019 Overview (06/07/2019): Added automatically from request for surgery [id number] Ulnar nerve laceration, left, initial encounter 10/26/2018 Overview (10/26/2018): Added automatically from request for surgery [id number] Current Treatment and Therapy Plans IV Maintenance Therapy Plan* Plan Start Date:06/28/2022 Plan Provider:Riley Shipley MD Linked Problems 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 Past Treatment and Therapy Plans Line Care Plan Name Start Date Discontinue Date Treatment Medications Discontinue Reason Plan Provider IV MAINTENANCE THERAPY PLAN 12/14/2021 06/28/2022 No medications scheduled. Therapy Complete Riley Shipley MD Oncology Chemotherapy Treatment Plan Name Start Date Discontinue Date Treatment Medications Discontinue Reason Plan Provider Cycles atezolizumab 21 Day Cycles 11/16/2021 12/07/2022 atezolizumab (TECENTRIQ)ate zolizumab (TECENTRIQ) IVPB Therapy Complete Riley Shipley MD 16 of 16 cycles completed Pemetrexed / CISplatin 21 Day Cycles - Non-Small Cell Lung 11/09/2021 CISplatin (PLATINOL) IVPB in 250 mLPEMEtrexed (ALIMTA) IVPB ([id number]) Therapy Complete Riley Shipley MD 4 of 4 cycles started Lifetime Dose Tracking * Chemical Lifetime Dose Automatic Entry Manual Entr y Fluoro Time 1.5 minutes 1.5 minutes 0 minutes Air kerma at the reference point (Ka,r) 13.2 mGy 1 3.2 mGy 0 mGy DLP 5,614 mGycm 5,614 mGycm 0 mGycm
[2025-03-28 10:59] LABS: Hematocrit 47.8 % (42.0-52.0); Hemoglobin 16.3 g/dL (14.0-18.0); Immature Granulocyte Percent A 0.3 % (0-0.5); Lymphocytes Absolute Auto 2.34 K/mm3 (0.9-3.2); Mean Corpuscular HGB Conc 34.1 g/dl (32-36); Mean Corpuscular Hemoglobin 31.9 pg (26-34); Mean Corpuscular Volume 93.5 fl (80-100); Nucleated Red Blood Cells Absolute Auto 0.000 K/mm3 (0.0-0.012); Nucleated Red Blood Cells Perc 0.0 % (0.0-0.2); Platelet Count Result 224 k/mm3 (150-375); Red Blood Count 5.11 M/mm3 (4.6-6.20); White Blood Count 7.3 K/mm3 (4.5-10.0)
[2025-03-28 11:19] LABS: Alanine Aminotransferase 17 U/L (6-50); Albumin Level 4.8 g/dL (3.5-5.1); Alkaline Phosphatase 70 U/L (38-126); Anion Gap 8 mmol/L (4-12); Aspartate Amino Transferase 31 U/L (17-59); Bilirubin,Total 0.4 mg/dL (0.2-1.3); Blood Urea Nitrogen 18 mg/dL (9-20); Calcium 9.3 mg/dL (8.4-10.2); Carbon Dioxide 27 mmol/L (22-30); Chloride 105 mmol/L (98-107); Cholesterol 195 mg/dL (0-200); Estimated Glomerular Filt Rate > 60; Glucose 92 mg/dL (65-110); HDL Direct 54 mg/dL; Potassium 4.3 mmol/L (3.4-5.0); Sodium 140 mmol/L (137-145); Total Protein 8.1 g/dL (6.3-8.2); Triglycerides 79 mg/dL (<150)
== END 2025-03-28 10:12 | disposition home or self-care (01) ==
PROVIDERS: PCP Family Medicine; Referring Provider Registered Nurse; Visit Provider Internal Medicine Cardiovascular Disease
DX: M47.816 Spondylosis without myelopathy or radiculopathy, lumbar region (principal); J44.9 Chronic obstructive pulmonary disease, unspecified; C34.90 Malignant neoplasm of unspecified part of unspecified bronchus or lung; E78.5 Hyperlipidemia, unspecified
CPT/HCPCS: 36415; 80053; 80061; 85025

== ENCOUNTER 2025-08-27 09:26 | Outpatient (CLI) | payer MEDICARE, MEDICAID, SELFPAY ==
[2025-08-27 10:30] LABS: Hematocrit 46.8 % (42.0-52.0); Hemoglobin 15.7 g/dL (14.0-18.0); Immature Granulocyte Percent A 0.4 % (0-0.5); Lymphocytes Absolute Auto 2.52 K/mm3 (0.9-3.2); Mean Corpuscular HGB Conc 33.5 g/dl (32-36); Mean Corpuscular Hemoglobin 31.9 pg (26-34); Mean Corpuscular Volume 95.1 fl (80-100); Nucleated Red Blood Cells Absolute Auto 0.000 K/mm3 (0.0-0.012); Nucleated Red Blood Cells Perc 0.0 % (0.0-0.2); Platelet Count Result 234 k/mm3 (150-375); Red Blood Count 4.92 M/mm3 (4.6-6.20); White Blood Count 8.0 K/mm3 (4.5-10.0)
[2025-08-27 10:31] LABS: Hemoglobin A1C 5.6 % (<5.7)
[2025-08-27 10:47] LABS: Alanine Aminotransferase 15 U/L (6-50); Albumin Level 4.5 g/dL (3.5-5.1); Alkaline Phosphatase 74 U/L (38-126); Anion Gap 3 mmol/L (4-12); Aspartate Amino Transferase 25 U/L (17-59); Bilirubin,Total 0.4 mg/dL (0.2-1.3); Blood Urea Nitrogen 9 mg/dL (9-20); Calcium 9.5 mg/dL (8.4-10.2); Carbon Dioxide 29 mmol/L (22-30); Chloride 104 mmol/L (98-107); Cholesterol 231 mg/dL (0-200); Estimated Glomerular Filt Rate > 60; Glucose 85 mg/dL (65-110); HDL Direct 51 mg/dL; Potassium 4.3 mmol/L (3.4-5.0); Sodium 136 mmol/L (137-145); Total Protein 7.7 g/dL (6.3-8.2); Triglycerides 187 mg/dL (<150)
[2025-08-27 11:24] LABS: Prostate Specific Antigen 0.4 ng/mL (< OR = 4.0); Thyroid Stimulating Hormone 0.639 uIU/mL (0.465-4.680)
[2025-08-27 18:47] LABS: Free T4 Free Thyroxine 1.00 ng/dL (0.78-2.19)
== END 2025-08-27 09:27 | disposition home or self-care (01) ==
PROVIDERS: PCP Family Medicine; Visit Provider Nurse Practitioner Family
DX: E78.5 Hyperlipidemia, unspecified (principal); I10 Essential (primary) hypertension; E55.9 Vitamin D deficiency, unspecified; R97.20 Elevated prostate specific antigen [PSA]; Z11.59 Encounter for screening for other viral diseases; Z13.1 Encounter for screening for diabetes mellitus
CPT/HCPCS: 36415; 80053; 80061; 82306; 83036; 84153; 84439; 84443; 85025; 86803